=== PATIENT | female | born 1940 | race Caucasian/White ===

== ENCOUNTER 2016-11-25 15:27 | Emergency (ER) | payer MEDICARE, BC ==
[2016-11-25 16:07] VITALS: BP 117/48
--- NOTE | 2016-11-25 16:16 | EDM.PDOC ---
[id number]: LEFT LEG SWOLLEN Time Seen by Provider: 11/25/16 15:40 Source of Information: Reports: Patient, Family History Limitations: Reports: No Limitations - History of Present Illness INITIAL COMMENTS - FREE TEXT/NARRATIVE: 75 years old w f with a history of colon CA, Breast CA, skin CA and Liver CA was on the tip to [place] when she noticed both of her ankles were swollen.Pt denied H/O CHF, however, she was on chemo Tx for her breast CA and Liver CA , no N/V/D or sob or any other acute medical issues at this time. Onset: Unknown/Unsure Onset Date: 11/25/16 Onset Time: 13:00 Duration: Hour(s):, Intermittent Location: Reports: Lower Extremity, Left, Lower Extremity, Right Quality: Reports: Other (no pain) Improves with: Reports: Other (elevation) Worsens with: Reports: Other (standing) Context: Reports: Other Associated Symptoms: Reports: No Other Symptoms - Related Data Allergies Allergy/AdvReac Type Severity Reaction Status Date / Time No Known Allergies Allergy Verified 11/25/16 19:52 Home Meds: Home Meds Anastrozole [Arimidex] 1 mg PO DAILY 04/03/16 [History] Esomeprazole [NexIUM] 40 mg PO ACBREAKFAST 04/03/16 [History] Fluocinolone Acetonide 1 applic TP BID 04/03/16 [History] Fluticasone Propionate [Flonase] 1 spray NASBOTH BID 04/03/16 [History] Levothyroxine [Synthroid] 88 mcg PO ACBREAKFAST 04/03/16 [History] cycloSPORINE [Restasis] 1 drop EYEBOTH Q12H 04/03/16 [History] metFORMIN HCl [Metformin HCl] 500 mg PO BIDMEALS 04/03/16 [History] predniSONE [Prednisone] 10 mg PO BID #14 tablet 04/03/16 [Rx] Past Medical History Gastrointestinal History: Reports: GERD - Past Surgical History GI Surgical History: Reports: EGD, Other (See Below) Female Surgical History: Reports: Other (See Below) Social & Family History - Family History Family Medical History: Noncontributory - Tobacco Use Smoking Status *Q: Never Smoker - Recreational Drug Use Recreational Drug Use: No ED ROS GENERAL - Review of Systems Review Of Systems: See Below Constitutional: Reports: No Symptoms HEENT: Reports: No Symptoms Respiratory: Reports: No Symptoms Cardiovascular: Reports: No Symptoms Endocrine: Reports: No Symptoms GI/Abdominal: Reports: No Symptoms : Reports: No Symptoms Musculoskeletal: Reports: Other (matthew ankle swelling) Skin: Reports: No Symptoms Neurological: Reports: No Symptoms Psychiatric: Reports: No Symptoms Hematologic/Lymphatic: Reports: No Symptoms Immunologic: Reports: No Symptoms ED EXAM, GENERAL - Physical Exam Exam: See Below Exam Limited By: No Limitations General Appearance: Alert, WD/WN, No Apparent Distress Eye Exam: Bilateral Eye: Abnormal EOM Ears: Normal External Exam Ear Exam: Bilateral Ear: Auricle Normal Nose: Normal Inspection Throat/Mouth: Normal Inspection, Normal Lips Head: Atraumatic, Normocephalic, Other (skin CA) Neck: Normal Inspection, Supple, Non-Tender Respiratory/Chest: No Respiratory Distress, Lungs Clear, Normal Breath Sounds Cardiovascular: Normal Peripheral Pulses, Regular Rate, Rhythm, Other (matthew ankle edema, pitting, mild eccymosis left toes) Peripheral Pulses: 1+: Radial (L), Radial (R) GI/Abdominal: Normal Bowel Sounds, Soft, Non-Tender (Female) Exam: Deferred Rectal (Female) Exam: Deferred Back Exam: Normal Inspection, Full Range of Motion Extremities: Normal Range of Motion, Normal Capillary Refill, Pedal Edema, Other (bilat pedal edema) Neurological: Alert, Oriented, CN II-XII Intact, Normal Cognition, Normal Gait Psychiatric: Normal Affect, Normal Mood Skin Exam: Warm, Dry, Intact, Pallor, Rash (left 3+4 toe sq hematoma, minor) Lymphatic: No Adenopathy EKG INTERPRETATION EKG Date: 11/25/16 Time: 17:55 Rhythm: NSR Rate (beats/min): 86 [place]: normal P-wave: present QRS: normal ST-T: normal QT: normal Comparison: NA - no prior EKG Course - Vital Signs Text/Narrative:: 75 years old w f with a history of colon CA, Breast CA, skin CA and Liver CA was on the tip to [place] when she noticed both of her ankles were swollen.Pt denied H/O CHF, however, she was on chemo Tx for her breast CA and Liver CA , no N/V/D or sob or any other acute medical issues at this time. PE: Matthew pedal edema 1+ pitting. minor SQ hematoma left 3+4th toes, Skin CA Labs: WBC 4.9 HGB 9.0 Pls 99K, INR 1.22 LFT: TB 0.3 DB 0.3 Glc 193 BNP 43 AST 36 Alb 2.8, potassium 3.3 Na 134. No old labs are available, Mdg level is pending. ECG: Imaging: CXR NAD, no change from prev. official report is pending Impresion: Matthew bitting ankle edema, minor, Hypokalemia, Hyponatremia, H/O Skin, Liver, breast and Colon CA Tx: Potassium Reexam: Improved Plan: D/C with instructions Last Recorded V/S: Last Vital Signs Temp 36.9 C 11/25/16 15:40 Pulse 93 11/25/16 15:40 Resp 18 11/25/16 15:40 BP 117/48 L 11/25/16 15:40 Pulse Ox 98 11/25/16 15:40 - Orders/Labs/Meds Labs: Laboratory Tests 11/25/16 11/25/16 11/25/16 Range/Units 16:35 16:35 16:35 WBC 4.9 (4.5-12.0) X10-3/uL RBC 3.05 L (3.23-5.20) x10(6)uL Hgb 9.0 L (11.5-15.5) g/dL Hct 28.3 L (30.0-51.3) % MCV 92.7 (80-96) fL MCH 29.4 (27.7-33.6) pg MCHC 31.7 L (32.2-35.4) g/dL RDW 19.7 H (11.5-15.5) % Plt Count 99 L (125-369) X10(3)uL MPV 8.4 (7.4-10.4) fL Neut % (Auto) 72.2 (46-82) % Lymph % (Auto) 13.3 (13-37) % [place] % (Auto) 13.2 H (4-12) % Eos % (Auto) 1 (1.0-5.0) % Baso % (Auto) 0 (0-2) % Neut # (Auto) 3.5 (1.6-8.3) # Lymph # (Auto) 0.7 (0.6-5.0) # [place] # (Auto) 0.6 (0.0-1.3) # Eos # (Auto) 0.1 (0.0-0.8) # Baso # (Auto) 0.0 (0.0-0.2) # PT 12.3 H (8.7-11.1) INR 1.22 H (0.89-1.13) Sodium 134 L (135-145) mmol/L Potassium 3.3 L (3.5-5.3) mmol/L Chloride 101 (100-110) mmol/L Carbon Dioxide 26 (23-29) mmol/L BUN 10 (8-23) mg/dL Creatinine 0.8 (0.6-1.3) mg/dL Est Cr Clr Drug Dosing 54.08 mL/min Estimated GFR (MDRD) > 60 (>60) BUN/Creatinine Ratio 12.5 (9-20) Glucose 196 H (80-116) mg/dL Calcium 8.5 L (8.6-10.2) mg/dL Magnesium (1.8-2.5) mg/dL Total Bilirubin 0.9 (0.1-1.3) mg/dL Direct Bilirubin 0.3 H (0.1-0.2) mg/dL AST 36 H (5-27) IU/L ALT 14 (14-26) IU/L Alkaline Phosphatase 104 (56-112) IU/L B-Natriuretic Peptide (0-100) pg/mL Total Protein 6.3 (6.0-8.0) g/dL Albumin 2.8 L (3.2-4.6) g/dL 11/25/16 11/25/16 Range/Units 16:35 16:38 WBC (4.5-12.0) X10-3/uL RBC (3.23-5.20) x10(6)uL Hgb (11.5-15.5) g/dL Hct (30.0-51.3) % MCV (80-96) fL MCH (27.7-33.6) pg MCHC (32.2-35.4) g/dL RDW (11.5-15.5) % Plt Count (125-369) X10(3)uL MPV (7.4-10.4) fL Neut % (Auto) (46-82) % Lymph % (Auto) (13-37) % [place] % (Auto) (4-12) % Eos % (Auto) (1.0-5.0) % Baso % (Auto) (0-2) % Neut # (Auto) (1.6-8.3) # Lymph # (Auto) (0.6-5.0) # [place] # (Auto) (0.0-1.3) # Eos # (Auto) (0.0-0.8) # Baso # (Auto) (0.0-0.2) # PT (8.7-11.1) INR (0.89-1.13) Sodium (135-145) mmol/L Potassium (3.5-5.3) mmol/L Chloride (100-110) mmol/L Carbon Dioxide (23-29) mmol/L BUN (8-23) mg/dL Creatinine (0.6-1.3) mg/dL Est Cr Clr Drug Dosing mL/min Estimated GFR (MDRD) (>60) BUN/Creatinine Ratio (9-20) Glucose (80-116) mg/dL Calcium (8.6-10.2) mg/dL Magnesium 1.6 L (1.8-2.5) mg/dL Total Bilirubin (0.1-1.3) mg/dL Direct Bilirubin (0.1-0.2) mg/dL AST (5-27) IU/L ALT (14-26) IU/L Alkaline Phosphatase (56-112) IU/L B-Natriuretic Peptide 59 (0-100) pg/mL Total Protein (6.0-8.0) g/dL Albumin (3.2-4.6) g/dL Meds: Medications Discontinued Medications Generic Name Dose Route Start Last Admin Trade Name Freq PRN Reason Stop Dose Admin Potassium Chloride 40 meq 11/25/16 17:22 11/25/16 17:46 Klor-Con M20 PO 11/25/16 17:23 40 meq ONETIME ONE Administration Potassium Chloride 40 meq 11/25/16 18:03 Klor-Con M20 PO 11/25/16 18:04 ONETIME ONE Departure - Departure Time of Disposition: 17:55 Disposition: Home, Self-Care 01 Condition: good Clinical Impression: Hypokalemia, Pedal edema Referrals: Noble Robles MD [Primary Care Provider] - Forms: ED Department Discharge Additional Instructions: Please take the potassium as recommended - 40 MEQ- after midnight. Please get the potassium level checked this Wednesday. Please f/u, come back to the ed if your symptoms get worse acutely. Elevate lower extremities.
[2016-11-25] MEDS ORDERED: Potassium Chloride 20 MEQ Tab.ER PO ONE ×2 (17:22→18:03)
--- NOTE | 2016-11-27 09:15 | CR ---
INDICATION: Short of breath, history of liver cancer. Just finished radiation and chemotherapy. Also, breast and colon CA four and fourteen years ago respectively. CHEST: PA and lateral views of the chest 11/25/2016 were compared with 2015 and 01/20/2010, revealing Port-A-Cath unchanged in position compared with 04/01/2016. The heart size is emphasized by a relatively poor inspiration and may be slightly enlarged. The aorta is somewhat tortuous. Blunting of the posterior sulci and costophrenic angles is a new finding, with question of some infiltrate at the lung bases, especially on the right. Pneumonia and pleuritis could be present. Somewhat flattened diaphragm leaf is also noted, raising question of COPD additionally. Evidence of previous breast surgery is noted on the right with axillary node dissection. Demineralization of bony structures may represent osteoporosis, but should be correlated clinically. The aorta is tortuous and calcified. IMPRESSION: 1. Bibasilar pleuroparenchymal changes may represent pneumonia and pleuritis - correlate clinically. Other etiology such as malignancy - metastatic disease would be a consideration with this patients history. 2. Suggestion of COPD. 3. ASHD with mild cardiomegaly. 4. Port-A-Cath remains in place. 5. Evidence of previous right breast surgery and axillary node dissection compatible with breast CA noted. 6. Possible osteoporosis - correlate clinically. 7. No definite evidence of metastatic disease, but cannot exclude metastatic disease at the lung bases with the pleuroparenchymal changes present. MTDD
== END 2016-11-25 18:20 | disposition home or self-care (01) ==
LOC: FB.ED 15:27
DX: E87.6 Hypokalemia (principal); E87.1 Hypo-osmolality and hyponatremia; R60.0 Localized edema; K21.9 Gastro-esophageal reflux disease without esophagitis; Z85.828 Personal history of other malignant neoplasm of skin; Z85.3 Personal history of malignant neoplasm of breast; Z85.05 Personal history of malignant neoplasm of liver; Z85.038 Personal history of other malignant neoplasm of large intestine; Z79.899 Other long term (current) drug therapy; Z79.84 Long term (current) use of oral hypoglycemic drugs
CPT/HCPCS: 36415; 71020; 80048; 80076; 83735; 83880; 85025; 85610; 93005; 99284; A9270; 99283

== ENCOUNTER 2018-03-15 16:55 | Emergency (ER) | payer MEDICARE, BC ==
[2018-03-15] MEDS ORDERED: Sodium Chloride 0.9% 10 ML Syringe FLUSH PRN (17:48)
--- NOTE | 2018-03-15 18:47 | EDM.PDOC ---
ED HPI GENERAL MEDICAL PROBLEM - General Chief Complaint: Neuro Symptoms/Deficits Stated Complaint: CONFUSION Time Seen by Provider: 03/15/18 17:00 Source of Information: Reports: Patient, Family History Limitations: Reports: No Limitations - History of Present Illness INITIAL COMMENTS - FREE TEXT/NARRATIVE: Cira has demonstrated signs of some weakness and confusion since yesterday pm, significance unknown. She denies headache, dizziness, chest pain, abdominal pain , SOB or palpitations. Her medical hx is complex, with Stage IV Breast CA since 2003 and partial remissions ever since. Her most recent relapse was just 2 weeks ago, and she resumed chemotherapy last week. She is scheduled for lab work tomorrow. - Related Data Allergies Allergy/AdvReac Type Severity Reaction Status Date / Time No Known Allergies Allergy Verified 11/25/16 19:52 Home Meds: Home Meds Anastrozole [Arimidex] 1 mg PO DAILY 04/03/16 [History] Esomeprazole [NexIUM] 40 mg PO ACBREAKFAST 04/03/16 [History] Fluocinolone Acetonide 1 applic TP BID 04/03/16 [History] Fluticasone Propionate [Flonase] 1 spray NASBOTH BID 04/03/16 [History] Levothyroxine [Synthroid] 88 mcg PO ACBREAKFAST 04/03/16 [History] cycloSPORINE [Restasis] 1 drop EYEBOTH Q12H 04/03/16 [History] metFORMIN HCl [Metformin HCl] 500 mg PO BIDMEALS 04/03/16 [History] predniSONE [Prednisone] 10 mg PO BID #14 tablet 04/03/16 [Rx] Past Medical History Gastrointestinal History: Reports: GERD Oncologic (Cancer) History: Reports: Breast, Metastatic - Past Surgical History GI Surgical History: Reports: EGD, Other (See Below) Female Surgical History: Reports: Other (See Below) Social & Family History - Family History Family Medical History: Noncontributory - Caffeine Use Caffeine Use: Reports: Coffee ED ROS GENERAL - Review of Systems Review Of Systems: See Below Constitutional: Reports: Malaise, Weakness, Fatigue HEENT: Reports: No Symptoms Respiratory: Reports: No Symptoms Cardiovascular: Reports: No Symptoms Endocrine: Reports: Fatigue GI/Abdominal: Reports: Constipation, Decreased Appetite : Reports: No Symptoms Musculoskeletal: Reports: Joint Pain (R shoulder) Skin: Reports: No Symptoms Neurological: Reports: Confusion, Difficulty Walking, Gait Disturbance Psychiatric: Reports: Confusion Hematologic/Lymphatic: Reports: No Symptoms Immunologic: Reports: No Symptoms ED EXAM, GENERAL - Physical Exam Exam: See Below Exam Limited By: Other (some confusion) General Appearance: Alert, WD/WN, No Apparent Distress Eye Exam: Bilateral Eye: EOMI, Normal Inspection, PERRL Ears: Normal External Exam Nose: Normal Inspection Throat/Mouth: Normal Inspection, Normal Lips, Normal Oropharynx, Normal Voice, No Airway Compromise Head: Normocephalic Neck: Normal Inspection, Supple, Non-Tender, Full Range of Motion Respiratory/Chest: Lungs Clear, Normal Breath Sounds, Chest Non-Tender, Other ( veniport L upper chest) Cardiovascular: Regular Rate, Rhythm, No Murmur, Systolic Murmur GI/Abdominal: Normal Bowel Sounds, Soft, Non-Tender, Distended (mild) (Female) Exam: Deferred Rectal (Female) Exam: Deferred Back Exam: Normal Inspection Extremities: Non-Tender, Limited Range of Motion (R shoulder) Neurological: Alert, CN II-XII Intact, Confused, Slow to Respond, Abnormal Gait Psychiatric: Flat Affect Skin Exam: Warm, Dry, Pallor Lymphatic: No Adenopathy Course - Vital Signs Text/Narrative:: Cira remained stable at the [facility] ED. No meds were dispensed. The CBC noted Hgb 10.7 gm, WBC 1,700, plts 70,000. The absolute neutrophil count is 1054. The CMP noted Na 130 meq/l, K 4.9 meq/l. She could not give us a urine specimen. - Orders/Labs/Meds Orders: Active Orders 24 hr Category Date Time Status UA W/MICROSCOPIC [URIN] Stat Lab 03/15/18 17:15 Ordered Heparin Sodium [Heparin Lock Flush 100 Units/ML] Med 03/15/18 17:40 Active 500 units FLUSH ASDIRECTED PRN Sodium Chloride 0.9% [Saline Flush] Med 03/15/18 17:48 Active 10 ml FLUSH ASDIRECTED PRN Medication Orders Heparin Sodium (Porcine) (Heparin Lock Flush 100 Units/Ml) 500 units FLUSH ASDIRECTED PRN PRN Reason: Keep Vein Open Sodium Chloride (Saline Flush) 10 ml FLUSH ASDIRECTED PRN PRN Reason: Keep Vein Open Labs: Laboratory Tests 09/10/2703/15/18 03/15/18 Range/Units 17:40 17:40 17:40 WBC 1.7 L* (4.5-12.0) X10-3/uL RBC 3.26 (3.23-5.20) x10(6)uL Hgb 10.7 L (11.5-15.5) g/dL Hct 31.4 (30.0-51.3) % MCV 96.3 H (80-96) fL MCH 32.7 (27.7-33.6) pg MCHC 34.0 (32.2-35.4) g/dL RDW 14.9 (11.5-15.5) % Plt Count 70 L (125-369) X10(3)uL MPV 7.7 (7.4-10.4) fL Add Manual Diff Yes Neutrophils % (Manual) 62 (46-82) % Lymphocytes % (Manual) 25 (13-37) % Monocytes % (Manual) 10 (4-12) % Eosinophils % (Manual) 2 (0-5) % Basophils % (Manual) 1 (0-2) % Hypersegmented Neuts Few PT 10.3 (8.7-11.1) INR 1.06 (0.89-1.13) Sodium 130 L (135-145) mmol/L Potassium 4.9 (3.5-5.3) mmol/L Chloride 96 L (100-110) mmol/L Carbon Dioxide 26 (21-32) mmol/L BUN 11 (7-18) mg/dL Creatinine 0.8 (0.55-1.02) mg/dL Est Cr Clr Drug Dosing TNP Estimated GFR (MDRD) > 60 (>60) BUN/Creatinine Ratio 13.8 (9-20) Glucose 181 H (80-116) mg/dL Calcium 9.3 (8.6-10.2) mg/dL Total Bilirubin 1.4 H (0.1-1.3) mg/dL AST 57 H (5-25) IU/L ALT 57 H (12-36) U/L Alkaline Phosphatase 263 H (56-112) IU/L Total Protein 6.8 (6.0-8.0) g/dL Albumin 2.4 L (3.2-4.6) g/dL Globulin 4.4 g/dL Albumin/Globulin Ratio 0.6 Meds: Medications Generic Name Dose Route Start Last Admin Trade Name Freq PRN Reason Stop Dose Admin Heparin Sodium (Porcine) 500 units 03/15/18 17:40 Heparin Lock Flush 100 Units/Ml FLUSH ASDIRECTED PRN Keep Vein Open Sodium Chloride 10 ml 03/15/18 17:48 Saline Flush FLUSH ASDIRECTED PRN Keep Vein Open Departure - Departure Time of Disposition: 18:45 Disposition: Home, Self-Care 01 Condition: Fair Clinical Impression: Metastatic breast cancer - Discharge Information *PRESCRIPTION DRUG MONITORING PROGRAM REVIEWED*: Not Applicable *COPY OF PRESCRIPTION DRUG MONITORING REPORT IN PATIENT JIN: Not Applicable Referrals: PCP,Not In Area [Primary Care Provider] - - Problem List & Annotations (1) Metastatic breast cancer SNOMED Code(s): 297794609, 941665377 Code(s): C50.919 - MALIGNANT NEOPLASM OF UNSP SITE OF UNSPECIFIED FEMALE BREAST Status: Acute Current Visit: Yes Annotation/Comment:: No therapeutic intervention at this time. She will take a copy of labwork and keep lab appt tomorrow, with results of Oncology in [place]. - Problem List Review Problem List Initiated/Reviewed/Updated: Yes - My Orders Last 24 Hours: My Active Orders 03/15/18 17:15 UA W/MICROSCOPIC [URIN] Stat 03/15/18 17:40 Heparin Sodium [Heparin Lock Flush 100 Units/ML] 500 units FLUSH ASDIRECTED PRN 03/15/18 17:48 Sodium Chloride 0.9% [Saline Flush] 10 ml FLUSH ASDIRECTED PRN - Assessment/Plan Last 24 Hours: My Active Orders 03/15/18 17:15 UA W/MICROSCOPIC [URIN] Stat 03/15/18 17:40 Heparin Sodium [Heparin Lock Flush 100 Units/ML] 500 units FLUSH ASDIRECTED PRN 03/15/18 17:48 Sodium Chloride 0.9% [Saline Flush] 10 ml FLUSH ASDIRECTED PRN Plan: Follow up with Medical Oncology tomorrow.
[2018-03-15 22:47] VITALS: BP 123/65
== END 2018-03-15 19:45 | disposition home or self-care (01) ==
LOC: FB.ED 16:55
DX: C50.919 Malignant neoplasm of unspecified site of unspecified female breast (principal); Z79.84 Long term (current) use of oral hypoglycemic drugs; Z79.899 Other long term (current) drug therapy
CPT/HCPCS: 80053; 85025; 85610; 99285; J1642; J7050